=== PATIENT | male | born 1965 | race Caucasian/White ===

== ENCOUNTER 2022-03-17 23:02 | Emergency (ER) | payer OTHER ==
[~2022-03-17 23:02] MED LIST: ASPIR 8181 MG PO; CARDURA1 MG PO; COL-RITE250 MG PO; PERCOCET 7.5-31 EACH PO; PRINIVIL20 MG PO; SINGULAIR10 MG PO; SOMA350 MG PO; ULORIC80 MG PO; VOLTAREN EC 7575 MG PO; ZOFRAN4 MG PO
[2022-03-17 23:52] LABS: HEMOGLOBIN 14.7 gm/dl (14.0-17.5); RED BLOOD COUNT 4.59 M/UL (4.20-5.50); WHITE BLOOD COUNT 8.8 K/UL (4.5-11.0)
[2022-03-18 00:14] LABS: BUN/CREATININE RATIO 18 (0-10)
== END 2022-03-18 02:27 | disposition home or self-care (01) ==
LOC: ER1 23:02
PROVIDERS: Emergency Medicine
DX: R10.9 Unspecified abdominal pain (principal); I51.9 Heart disease, unspecified; Z95.5 Presence of coronary angioplasty implant and graft
CPT/HCPCS: 80053; 81001; 83690; 85025; 99284